=== PATIENT | female | born 1990 | race Two or more races ===

== ENCOUNTER 2025-07-04 04:34 | Inpatient (IN) ==
[2025-07-04] MEDS ORDERED: OXYTOCIN 30 UNITS/NSS 30 UNITS/500 ML BAG IV PRN ×2 (05:07→14:08)
[2025-07-04] MEDS ORDERED: LIDOCAINE 1% LOCAL 20 ML VIAL INFIL PRN (05:07)
[2025-07-04] MEDS: LACTATED RINGER'S 1,000 ML IV PRN (05:10)
[2025-07-04] MEDS ORDERED: SODIUM CHLORIDE 0.9% 100 ML IV PRN (05:37)
[2025-07-04] MEDS ORDERED: NALOXONE HCL 0.4 MG/1 ML VIAL/CARP IV PRN (05:57)
[2025-07-04] MEDS ORDERED: BUPIVACAINE 0.25% PF 30 ML VIAL EPI PRN (05:57)
[2025-07-04] MEDS ORDERED: ROPIVACAINE 0.5% PF 5 MG/ML 20 ML VIAL EPI PRN (05:57)
[2025-07-04] MEDS ORDERED: diphenhydrAMINE 50 MG/ML VIAL IV PRN (05:57)
[2025-07-04] MEDS ORDERED: SODIUM CHLORIDE 0.9% PF INJ 10 ML VIAL EPI PRN (05:57)
[2025-07-04] MEDS ORDERED: LIDOCAINE 2% MPF LOCAL 5 ML VIAL EPI PRN (05:57)
[2025-07-04] MEDS ORDERED: NALOXONE HCL 1 MG in SODIUM CHLORIDE 0.9% 1,000 ML IV PRN (05:57)
[2025-07-04] MEDS ORDERED: ONDANSETRON INJ 2 MG/ML 2 ML VIAL IV PRN (05:57)
[2025-07-04] MEDS ORDERED: NALBUPHINE HCL INJ 10 MG/ML AMP IV PRN (05:57)
--- NOTE | 2025-07-04 06:01 | Anesthesiology Consultation ---
Date of Service July 04, 2025 Assessment & Plan (1) Encounter for pre-operative examination: Chart Review Chart Review: Patient NOT seen in Pre Admission Testing and Acceptable Risk for Labor Epidural Consults Requested none History Height/Weight Height: 5 ft Weight: 86.636 kg Allergies Allergy/AdvReac Type Severity Reaction Status Date / Time No Known Allergies Allergy Verified 02/26/24 08:44 Medications Home Medications Medication Instructions Recorded Confirmed Last Taken Humulin N NPH Insulin KwikPen 10 units SC HS 05/29/25 05/29/25 05/28/25 Humulin N NPH Insulin KwikPen 20 units SC DAILYBB 05/29/25 05/29/25 05/29/25 09:00 magnesium 250 mg tablet 250 mg PO DAILY 05/29/25 05/29/25 Unknown vit no.95-ferrous 1 tab PO DAILY 05/29/25 05/29/25 05/29/25 fumarate 28 mg-folic acid 800 mcg tablet () progesterone micronized 200 mg 200 mg vaginal HS 05/29/25 05/29/25 05/28/25 capsule (Prometrium) Active Medications Generic Name Dose Route Start Last Admin Trade Name Freq PRN Reason Stop Dose Admin Lactated Ringer's 1,000 mls @ 125 mls/hr 07/04/25 05:07 07/04/25 06:17 Lr IV 07/06/25 05:06 125 mls/hr .Q8H PRN Administration L&D Protocol Protocol Past Medical History Medical History (Updated 07/04/25 @ 06:00 by Roberto Patel MD) Asthma Gestational diabetes requiring insulin Encounter for pre-operative examination Pituitary adenoma Hyperprolactinemia Exercise / Class Metabolic Activity II 4-5 Yardwork/Stairs/Walk up hill Past Family History Family History Aunt Breast cancer Sister Diabetes Brother Diabetes Denies family history of Ovarian cancer Prostate cancer Lung cancer Colorectal cancer Past Surgical History Surgical History Hx of section 2020 Social History Smoking Status: Never smoker Do You Dip or Chew Tobacco: No Hx Alcohol Use: No Hx Substance Use: No substance use type: does not use Physical Exam Vital Signs Last Vital Signs Temp 37.2 C 07/04/25 05:17 Pulse 75 07/04/25 06:21 Resp 18 07/04/25 05:17 BP 144/87 H 07/04/25 04:47 Pulse Ox 98 07/04/25 06:21
[2025-07-04 06:58] LABS: Hematocrit (blood only) 37.6 % (37.0-47.0); Hemoglobin 12.2 g/dl (12.0-16.0); Mean Corpuscular Hemoglobin 25.9 pg (25.0-34.0); Mean Corpuscular Volume 79.8 fL (80.0-100.0); Platelet Count 172 K/uL (130-400); RDW Standard Deviation 43.7 fL (36.4-46.3); Red Blood Count 4.71 M/uL (4.20-5.40); White Blood Count 4.91 K/ul (4.8-10.8)
[2025-07-04] MEDS: LIDOCAINE 2%/EPINEPHRINE 1:200,000 20 ML PF ONE (07:23)
[2025-07-04] MEDS: BUPIVACAINE 0.25% PF 30 ML VIAL ONE (07:23)
[2025-07-04] MEDS: fentANYL 2 MCG/ML BUPIVacaine 0.125%-NSS 100ML BAG ONE (07:34)
--- NOTE | 2025-07-04 07:40 | History & Physical Report ---
Date of Service July 04, 2025 Assessment & Plan (1) History of primary section: Plan: TOLAC planned Admission and Anticipated Discharge Date Admission Date: July 04, 2025 History of Present Illness Chief Complaint: ruptured membranes at term Primary Care Provider: Taryn Kaiser DO 35 F P2012 at 38.5 with SROM this AM desires to attempt TOLAC. Patient is aware of the risks and bbenefits and read the consent then signed it to agree with the risks involved. GBS is negative. Allergies Allergy/AdvReac Type Severity Reaction Status Date / Time No Known Allergies Allergy Verified 02/26/24 08:44 Home Medications Medication Instructions Recorded Confirmed Type Humulin N NPH Insulin KwikPen 10 units SC HS 05/29/25 05/29/25 History Humulin N NPH Insulin KwikPen 20 units SC DAILYBB 05/29/25 05/29/25 History magnesium 250 mg tablet 250 mg PO DAILY 05/29/25 05/29/25 History vit no.95-ferrous 1 tab PO DAILY 05/29/25 05/29/25 History fumarate 28 mg-folic acid 800 mcg tablet () progesterone micronized 200 mg 200 mg vaginal HS 05/29/25 05/29/25 History capsule (Prometrium) Patient History Medical History Asthma Gestational diabetes requiring insulin Encounter for pre-operative examination Pituitary adenoma Hyperprolactinemia Surgical History Hx of section 2020 Family History Aunt Breast cancer Sister Diabetes Brother Diabetes Denies family history of Ovarian cancer Prostate cancer Lung cancer Colorectal cancer Social History Smoking Status: Never smoker Second Hand Exposure: No; Do You Dip or Chew Tobacco: No; Tobacco Cessation Education Requested by Patient: No Hx Alcohol Use: No Hx Substance Use: No Preferred Language: Yi Communication Ability: Effective Visual Impairment: No Limitations Hearing Ability: Normal Balance Wheel Facer Required: No Beliefs That Will Affect Care: None marital status: Current Living Situation: Spouse and Family Current Living Situation Comment: and sons current occupational status: unemployed How many Children do You have: 2 Other Information That Helps Us Care for You: No Feels Safe at Home: Yes Safety Concerns: Feels Safe At This Time Childhood Exposure to Second-Hand Smoke: No Diet: regular caffeine: Yes (coffee) during the past year weight has: remained stable Dental Care, Regularly: Yes Physical Activity Frequency: 1-2 Times per Week Physical Activity Frequency Comment: walking Seatbelt Use: always Sunscreen Use: Yes Assistive Devices: None OB History Prior x1 [employer] History neg Review of Systems All systems reviewed & are unremarkable except as noted in HPI & below Physical Exam Constitutional: WD/WN, vitals as above Eyes: PERRL, conjunctivae normal, anicteric sclerae Respiratory: normal respiratory effort Cardiovascular: Rate/Rhythm: regular rate and regular rhythm Gastrointestinal (Abdomen): Inspection/Auscultation: abdomen normal to inspection Musculoskeletal: Extremities: extremities normal to inspection Skin: no rashes, warm and dry Neurologic: patellar DTR's 2+ bilat, sensation intact Psychiatric: A+Ox3, euthymic affect Genitourinary: Manual OB Exam: + cervical dilation 5 cm, + cervical effacement 100%, + station -1 and + amniotic fluid clear OB Exam Monitor Tracing: + external FHT monitor used, + external uterine monitor used, + category I and + normal FHT variability Results & Data Vital Signs (Past 12 Hours) Vital Signs Temp Pulse Resp BP Pulse Ox 07/04/25 07:33 75 130/75 07/04/25 07:31 79 131/73 96 07/04/25 07:29 76 130/69 07/04/25 07:27 81 133/77 07/04/25 07:26 84 97 07/04/25 07:25 79 124/70 07/04/25 07:22 75 134/75 07/04/25 07:21 78 99 07/04/25 07:20 75 137/78 07/04/25 07:16 83 97 07/04/25 07:11 75 97 07/04/25 07:08 73 140/74 07/04/25 07:06 71 98 07/04/25 06:56 82 97 07/04/25 06:51 75 97 07/04/25 06:46 76 97 07/04/25 06:41 71 97 07/04/25 06:36 91 H 97 07/04/25 06:31 73 97 07/04/25 06:26 72 98 07/04/25 06:21 75 98 07/04/25 06:16 76 98 07/04/25 05:17 37.2 C 18 07/04/25 04:47 74 144/87 H 07/04/25 04:45 18 07/04/25 04:45 37.2 C 18 Laboratory Results Laboratory Results - last 72 hr 07/04/25 06:46 WBC 4.91 RBC 4.71 Hgb 12.2 Hct 37.6 MCV 79.8 L MCH 25.9 MCHC 32.4 RDW Std Deviation 43.7 RDW Coeff of Pacheco 15.1 H Plt Count 172 MPV 11.3 Blood Type O Positive Antibody Screen NEGATIVE Crossmatch See Detail Monitoring External Monitor Cat 1
[2025-07-04] MEDS: BUPIVACAINE 0.25% PF 30 ML VIAL EPI STA (07:42)
[2025-07-04] MEDS: LIDOCAINE 2%/EPINEPHRINE 1:200,000 20 ML PF EPI STA (07:43)
[2025-07-04] MEDS: SODIUM CHLORIDE 0.9% PF INJ 10 ML VIAL EPI STA (08:30)
[2025-07-04] MEDS: SODIUM CHLORIDE 0.9% PF INJ 10 ML VIAL ONE (08:30)
[2025-07-04] MEDS: OXYTOCIN 30 UNITS/NSS 30 UNITS/500 ML BAG IV PRN (10:11)
[2025-07-04] MEDS ORDERED: Nursing to Pharmacy Communication SCH (11:30)
--- NOTE | 2025-07-04 11:49 | Anesthesia Procedure Note ---
Date of Service July 04, 2025 Anesthesia Epidural Re-Dose Vital Signs Temp Pulse Resp BP Pulse Ox 36.9 C 79 20 124/71 97 07/04/25 09:30 07/04/25 11:46 07/04/25 11:00 07/04/25 11:44 07/04/25 11:46 Notes Pain Intensity: 8 Dilatation (cm): 6.0 Effacement (%): 100 Called by nursing to evaluate epidural as the patient is having increased pain. The epidural was re-dosed with the following medications (all medications via epidural route) after negative aspiration of the epidural catheter for CSF/HEME. 5cc Lidocaine with epi via epidural After Epidural Re-Dose Mental Status: alert / awake / arousable and participated in evaluation Pain: improving with treatment Airway Patency, RR, SpO2: stable & adequate BP & HR: stable & adequate
[2025-07-04] MEDS: fentANYL 2 MCG/ML BUPIVacaine 0.125%-NSS 100ML BAG EPI PRN (13:15)
--- NOTE | 2025-07-04 13:15 | Anesthesia Procedure Note ---
Date of Service July 04, 2025 Anesthesia Epidural Re-Dose Vital Signs Temp Pulse Resp BP Pulse Ox 36.7 C 78 18 120/96 99 07/04/25 11:30 07/04/25 13:13 07/04/25 12:30 07/04/25 13:13 07/04/25 13:11 Notes Pain Intensity: 6 Dilatation (cm): 7.5 Effacement (%): 90 Called by nursing to evaluate epidural as the patient is having increased pain. The epidural was re-dosed with the following medications (all medications via epidural route) after negative aspiration of the epidural catheter for CSF/HEME. 3cc 2% Lidocaine with epi via epidural After Epidural Re-Dose Mental Status: alert / awake / arousable and participated in evaluation Pain: improving with treatment Airway Patency, RR, SpO2: stable & adequate BP & HR: stable & adequate
[2025-07-04] MEDS: METHYLERGONOVINE MALEATE 0.2 MG/ML AMP ONE (14:00)
[2025-07-04] MEDS ORDERED: ACETAMINOPHEN W/CODEINE #3 1 TAB PO PRN (14:08)
[2025-07-04] MEDS ORDERED: HYDROCORTISONE ACETATE 25 MG SUPP PR PRN (14:08)
--- NOTE | 2025-07-04 14:14 | Delivery Summary ---
Vaginal Delivery Summary Date of Service July 04, 2025 Vaginal Delivery Summary Patient is a 4 para 2. Followed for care at [facility]. Well dated with a first trimester ultrasound. She comes in spontaneous labor with rupture membranes at 38 weeks 5 days gestation. Previous for macrosomia and gestational diabetes. Patient's been well-controlled on insulin twice a day. She had a recent ultrasound which showed no evidence of macrosomia. She was admitted placed on the monitor. She was having spontaneous contractions. She received epidural for pain control. Then contractions spaced out she was augmented with IV Pitocin. She made nice steady progress. Cervix dilated to head came down nicely. She pushed out a live male . Infant was delivered via direct occiput anterior position over an intact perineum. After delivery of the infant cord was allowed to pulse for 1 full minute. Cord was then clamped cut by the father. With IV Pitocin running and IM Methergine. The placenta was delivered intact. Cord blood was taken. Inspection of the perineum revealed a first-degree midline laceration. This was repaired anatomically. 2 deep sutures were used approximate the bulbocavernosus muscle. Second deep sutures used approximate the perineal body. Then a running subcuticular suture was used to approximate the skin edges. And a running vaginal suture was used to approximate the vaginal edges. Quantitative blood loss was 110 mL. Patient tolerated delivery well.
[2025-07-04] MEDS: METHYLERGONOVINE MALEATE 0.2 MG/ML AMP IM ONE (14:29)
--- NOTE | 2025-07-04 17:27 | Anesthesia Procedure Note ---
Date of Service July 04, 2025 Anesthesia Post Epidural Note Vital Signs Vital Signs: Temp Pulse Resp BP Pulse Ox 36.9 C 84 16 126/71 99 07/04/25 16:15 07/04/25 16:16 07/04/25 16:15 07/04/25 16:16 07/04/25 14:15 Pain Intensity Lower Abdomen: Pain Intensity: 6 Notes Mental Status: alert / awake / arousable and participated in evaluation Nausea / Vomiting: adequately controlled Pain: adequately controlled Airway Patency, RR, SpO2: stable & adequate BP & HR: stable & adequate Hydration State: stable & adequate Neuraxial Anesthesia: was administered and sensory block is resolving Anesthetic Complications: no major complications apparent and Pt Satisfied with anesthetic care Epidural: Removed without complications and With tip intact
[2025-07-04] MEDS: DIPHTHER/TETAN/PERTUS Vaccine (Tdap, Adol/Adult) 0.5mL IM ONE (17:56)
[2025-07-04] MEDS: IBUPROFEN 600 MG TAB PO PRN (18:32)
[2025-07-04] MEDS: BENZOCAINE 20% SPRY 85 APPLN/85 GM CAN EXT PRN (18:33)
[2025-07-04] MEDS: ACETAMINOPHEN 325 MG TAB PO PRN (19:23)
[2025-07-04] MEDS: DOCUSATE SODIUM 100 MG CAP PO SCH (21:34)
[2025-07-05 06:43] LABS: Hematocrit (blood only) 35.6 % (37.0-47.0); Hemoglobin 11.5 g/dl (12.0-16.0); Mean Corpuscular Hemoglobin 26.0 pg (25.0-34.0); Mean Corpuscular Volume 80.5 fL (80.0-100.0); Platelet Count 153 K/uL (130-400); RDW Standard Deviation 44.1 fL (36.4-46.3); Red Blood Count 4.42 M/uL (4.20-5.40); White Blood Count 10.35 K/ul (4.8-10.8)
[2025-07-05] MEDS: PRENATAL VITAMIN 1 TAB PO SCH (09:04)
--- NOTE | 2025-07-05 12:21 | Obstetrical Progress Note ---
Date of Service July 05, 2025 Assessment & Plan Admission and Anticipated Discharge Date Admission Date: July 04, 2025 Subjective abdomen soft and non tender no calf tenderness ambulating well vaginal bleeding scant hgb 11.5 Results & Data Vital Signs (Past 12 Hours) Vital Signs Temp Pulse Resp BP Pulse Ox O2 Del Method 07/05/25 07:20 37.1 C 67 18 107/67 97 Room Air 07/05/25 03:38 37.1 C 67 16 118/77 98 Room Air
[2025-07-05 22:01] VITALS: RESP 18
[2025-07-06 06:32] LABS: Hematocrit (blood only) 38.7 % (37.0-47.0); Hemoglobin 12.2 g/dl (12.0-16.0)
--- NOTE | 2025-07-06 08:48 | Obstetrical Progress Note ---
Date of Service July 06, 2025 Assessment & Plan Admission and Anticipated Discharge Date Admission Date: July 04, 2025 Subjective Patient is seen and examined. She feels well, no complaints. Ambulating without dizziness Voiding without difficulty Tolerating regular diet with out N&V Bleeding is minimal No fever/ chills/ CP/ SOB/ N&V/ Leg pain Breast and bottle feeding without problems Vital Signs Temp Pulse Resp BP BP Pulse Ox O2 Del Method 07/06/25 02:26 37.1 C 66 18 138/84 95 Room Air 07/05/25 22:53 36.8 C 78 18 118/70 97 Room Air 07/05/25 22:10 36.8 C 90 18 106/69 Room Air 07/05/25 21:35 36.9 C 77 18 126/78 97 Room Air 07/05/25 12:15 37.2 C 69 16 125/88 Lab Results 07/04/25 07/04/25 07/05/25 Range/Units 06:46 09:07 06:26 WBC 4.91 10.35 (4.8-10.8) K/ul RBC 4.71 4.42 (4.20-5.40) M/uL Hgb 12.2 11.5 L (12.0-16.0) g/dl Hct 37.6 35.6 L (37.0-47.0) % MCV 79.8 L 80.5 (80.0-100.0) fL MCH 25.9 26.0 (25.0-34.0) pg MCHC 32.4 32.3 (32.0-36.0) g/dL RDW Std Deviation 43.7 44.1 (36.4-46.3) fL RDW Coeff of Pacheco 15.1 H 15.1 H (11.5-14.5) % Plt Count 172 153 (130-400) K/uL MPV 11.3 11.0 (9.4-12.4) fL POC Glucose 79 (70-99) mg/dl Treponema pallidum Ab Negative (Negative) Blood Type O Positive Antibody Screen NEGATIVE Crossmatch See Detail 07/06/25 Range/Units 05:50 WBC (4.8-10.8) K/ul RBC (4.20-5.40) M/uL Hgb 12.2 (12.0-16.0) g/dl Hct 38.7 (37.0-47.0) % MCV (80.0-100.0) fL MCH (25.0-34.0) pg MCHC (32.0-36.0) g/dL RDW Std Deviation (36.4-46.3) fL RDW Coeff of Pacheco (11.5-14.5) % Plt Count (130-400) K/uL MPV (9.4-12.4) fL POC Glucose (70-99) mg/dl Treponema pallidum Ab (Negative) Blood Type Antibody Screen Crossmatch PE: General: Alert, orientedx3, NAD Abd: soft, NT, fundus firm, below Umbilicus Perineum intact, Lochia rubra minimal Ext; NT, no edema AP: 35 yo s/p , ppd# 2 VSS Afebrile doing well Continue routine care All questions were answered D/C home , f/u in office Results & Data Vital Signs (Past 12 Hours) Vital Signs Temp Pulse Resp BP BP Pulse Ox O2 Del Method 07/06/25 02:26 37.1 C 66 18 138/84 95 Room Air 07/05/25 22:53 36.8 C 78 18 118/70 97 Room Air 07/05/25 22:10 36.8 C 90 18 106/69 Room Air 07/05/25 21:35 36.9 C 77 18 126/78 97 Room Air
[2025-07-06 09:01] VITALS: PULSE 71; TEMP 98.2; O2SAT 97
[2025-07-06 09:08] VITALS: BP 118/70
== END 2025-07-06 14:55 | disposition home or self-care (01) | DRG 807 ==
LOC: OPB 04:34 → 4S1 04:36 → 4E2 18:16